=== PATIENT | female | born 1950 | race Two or more races ===

== ENCOUNTER → 2024-04-25 | Outpatient (CLI) | payer OTHER, SELFPAY ==
[2024-04-25 15:56] LABS: Collection Type, Urine Clean Catch
[2024-04-25 18:12] LABS: Bacteria,Urine 1+; Bilirubin,Urine Negative (Negative); Blood,Urine Negative (Negative); Clarity,Urine Turbid (Clear/Hazy); Color,Urine Lt-Yellow (Lt Yel-Yel); Glucose, Urine Negative (Negative); Ketones,Urine Negative (Negative); Leukocyte Esterase,Urine Positive (Negative); Nitrite,Urine Positive (Negative); Protein,Urine Negative (Neg - Trace); RBC,Urine 4 /hpf (0-3); Specific Gravity,Urine 1.016 (1.001-1.035); Squamous Epithelial Cell,Urine 4 /hpf (0-5); Urobilinogen,Urine Negative mg/dL (0.0-1.0); WBC,Urine 185 /hpf (0-5)
== END | disposition home or self-care (01) ==
LOC: SLDO 15:41
PROVIDERS: PCP Nurse Practitioner Family; Referring Provider Nurse Practitioner Family; Visit Provider Nurse Practitioner Family
DX: N39.0 Urinary tract infection, site not specified (principal)
CPT/HCPCS: 81001; 87077; 87086; 87186

== ENCOUNTER → 2024-10-22 | Outpatient (CLI) | payer OTHER, SELFPAY ==
[2024-10-22 09:16] LABS: Collection Type, Urine Clean Catch
[2024-10-22 09:29] LABS: Basophils # (Auto) 0.1 Thou/mm3 (0.0-0.2); Basophils % (Auto) 1 % (0-2.5); Eosinophils # (Auto) 0.2 Thou/mm3 (0.0-0.5); Eosinophils % (Auto) 3 % (0-10); Hematocrit 35.8 % (36.0-46.0); Hemoglobin 11.7 g/dL (12.0-16.0); Immature Granulocytes Auto 0.02 Thou/mm3 (0.00-0.00); Lymphocytes # (Auto) 1.5 Thou/mm3 (1.0-4.8); Lymphocytes % (Auto) 27 % (10-50); Mean Corpuscular HGB Conc 32.7 g/dl (31.0-37.0); Mean Corpuscular Hemoglobin 30.1 pg (25.0-35.0); Mean Corpuscular Volume 92 fL (80-100); Monocytes # (Auto) 0.4 Thou/mm3 (0.0-0.8); Monocytes % (Auto) 7 % (0-12); Neutrophils # (Auto) 3.5 Thou/mm3 (1.8-7.7); Neutrophils % (Auto) 62 % (37-80); Nucleated Red Blood Cell # 0.00 Thou/mm3 (0.00-0.00); Nucleated Red Blood Cell % 0 /100 WBC (0); Platelet Count 304 Thou/mm3 (140-440); RDW Standard Deviation 44.1 fL (36.4-46.3); Red Blood Count 3.89 Miln/mm3 (4.00-5.20); White Blood Count 5.6 Thou/mm3 (3.6-11.0)
[2024-10-22 09:39] LABS: Bilirubin,Urine Negative (Negative); Blood,Urine Negative (Negative); Clarity,Urine Clear (Clear/Hazy); Color,Urine Lt-Yellow (Lt Yel-Yel); Culture Indicated,Urine Not Indicated; Glucose, Urine Negative (Negative); Ketones,Urine Negative (Negative); Leukocyte Esterase,Urine Negative (Negative); Nitrite,Urine Negative (Negative); PH,Urine 5.5 (5.0-7.0); Protein,Urine Negative (Neg - Trace); RBC,Urine 2 /hpf (0-3); Specific Gravity,Urine 1.020 (1.001-1.035); Squamous Epithelial Cell,Urine 3 /hpf (0-5); Urobilinogen,Urine Negative mg/dL (0.0-1.0); WBC,Urine 1 /hpf (0-5)
[2024-10-22 09:41] LABS: Glucose Estimated Average 126 mg/dL (80-131); Hemoglobin A1C 6.0 % Hgb (4.8-6.0)
[2024-10-22 09:54] LABS: Vitamin D 25 Hydroxy Total 40.1 ng/mL (7.3-40.2)
[2024-10-22 10:07] LABS: Alanine Aminotransferase 12 U/L (10-49); Albumin, Serum 4.2 gm/dL (3.4-4.8); Albumin/Globulin Ratio 1.4 (1.2-2.2); Alkaline Phosphatase 68 U/L (46-116); Anion Gap 11 (7-16); Aspartate Amino Transferase 18 U/L (0-34); BUN/Creatinine Ratio 16 Ratio (12-20); Bilirubin,Total 0.3 mg/dL (0.3-1.2); Blood Urea Nitrogen 14 mg/dL (9-23); Calcium 9.3 mg/dL (8.3-10.6); Calcium (Corrected) 9.3 mg/dL (8.5-10.1); Carbon Dioxide 24.8 mMol/L (20.0-31.0); Cardiac Risk Estimate 2.8 RATIO (3.7-5.6); Chloride 109 mMol/L (98-107); Cholesterol 169 mg/dL (132-200); Creatinine (Component) 0.9 mg/dL (0.6-1.3); Globulin 2.9 gm/dL (2.3-3.5); Glucose 99 mg/dL (74-106); HDL Cholesterol 61 mg/dL (40-60); LDL Cholesterol,Calculated 78 mg/dL (0-130); Osmolality,Calculated 289 (275-295); Potassium 4.7 mMol/L (3.4-5.1); Sodium 145 mMol/L (136-145); Thyroid Stimulating Hormone 1.22 uIU/mL (0.55-4.78); Total Protein 7.1 gm/dL (5.7-8.2); Triglycerides 152 mg/dL (30-150); eGFR > 60 See Note
== END | disposition home or self-care (01) ==
LOC: COPL 08:28
PROVIDERS: PCP Family Medicine; Referring Provider Registered Nurse; Visit Provider Registered Nurse
DX: Z00.00 Encounter for general adult medical examination without abnormal findings (principal); I10 Essential (primary) hypertension; E78.2 Mixed hyperlipidemia
CPT/HCPCS: 36415; 80053; 80061; 81001; 82306; 83036; 84443; 85025

== ENCOUNTER → 2024-11-12 | Outpatient (CLI) | payer OTHER, SELFPAY | END | disposition home or self-care (01) | LOC: SLDO 14:39 | PROVIDERS: Referring Provider Student in an Organized Health Care Education/Training Program; Visit Provider Student in an Organized Health Care Education/Training Program | DX: N39.0 Urinary tract infection, site not specified (principal) | CPT/HCPCS: 87086 ==

== ENCOUNTER → 2024-12-25 | Outpatient (CLI) | payer OTHER, SELFPAY ==
--- NOTE | 2024-12-25 14:00 | XR_ITS ---
Examination: Bone densitometry Date and time of exam:December 25, 2024, 1417 hours INDICATIONS: Hysterectomy age 56 vitamin D 5 years Technique: Lumbar spine and hip total bone mineralization values of an calculated. Peak reference and age match control results have been displayed. Findings: Lumbar spine total bone mineralization is1.105 gm/cm2. This is 0.5 standard deviations above peak reference. This is 2.9 standard deviations above age-matched controls. Hip total bone mineralization is 0.953 gm/cm2 This is 0.1 standard deviations below peak reference. This is 1.7 standard deviations above age-matched controls Impression: There is normal mineralization based on lumbar spine measurements. There is osteopenia based on hip measurements Lumbar mineralization is decreased 1.2% compared with November 16, 2021. Hip mineralization is decreased 0.2% compared with November 16, 2021.
--- NOTE | 2024-12-25 14:20 | XR_ITS ---
Examination: Screening digital mammography, bilateral Computer aided detection 3-D breast Tomosynthesis, bilateral Date and time of exam: December 25, 2024, 1355 hours, compared to mammograms dating to November 16, 2021 Indication: Screening Technique: Nonmagnified MLO, CC views of the breasts to been obtained, reconstructed from 3-D Tomosynthesis images. R2 computer aided detection program utilized for evaluation of suspicious masses and/or abnormal calcifications. 3-D Tomosynthesis images obtained. Findings: Scattered areas of fibroglandular density. 14 mm focal asymmetry upper outer right breast 12 mm focal asymmetry upper outer left breast anterior depth Impression: BI-RADS Category 0: Incomplete: Need additional imaging evaluation. Recommend follow-up spot tomographic views of 14 mm focal asymmetry upper outer right breast and 12 mm focal asymmetry upper outer left breast as well as bilateral breast sonography to complete the workup
== END | disposition home or self-care (01) ==
LOC: CDIM 13:48
PROVIDERS: Referring Provider Registered Nurse; Visit Provider Registered Nurse
DX: Z12.31 Encounter for screening mammogram for malignant neoplasm of breast (principal); N64.89 Other specified disorders of breast; R92.8 Other abnormal and inconclusive findings on diagnostic imaging of breast; M85.89 Other specified disorders of bone density and structure, multiple sites
CPT/HCPCS: 77063; 77067; 77080

== ENCOUNTER → 2025-02-24 | Outpatient (CLI) | payer OTHER, SELFPAY ==
--- NOTE | 2025-02-24 09:30 | XR_ITS ---
Examination: Breast ultrasound complete, bilateral Date and time of exam: February 24, 2025, 0917 hours INDICATIONS: Mammogram 12/21/1999 2514 mm focal asymmetry upper outer right breast 12 mm focal asymmetry upper outer left breast Technique: Real-time grayscale ultrasonographic imaging bilateral breasts, including all 4 quadrants as well as nipple retroareolar and axillary regions. Findings: Sonographic images right breast 7:00 cyst 2 x 3 mm 10:00 nodule circumscribed 6 x 6 mm 11:00 cyst 3 x 3 mm Sonographic images left breast No cystic or solid mass IMPRESSION: BI-RADS Category 3: Probably benign findings Recommend 1 additional 6-month right breast sonogram follow-up to document stability of 10:00 nodule described above right breast
--- NOTE | 2025-02-24 10:30 | XR_ITS ---
Examination: Diagnostic digital mammography, bilateral Computer aided detection 3-D breast Tomosynthesis, bilateral Date and time of exam: February 24, 2025, 0938 hours INDICATIONS: Mammogram 12/25/2024 14 mm focal asymmetry upper outer right breast 12 mm focal asymmetry upper outer left breast Technique: Nonmagnified MLO, CC views of the breasts to been obtained, reconstructed from 3-D Tomosynthesis images. R2 computer aided detection program utilized for evaluation of suspicious masses and/or abnormal calcifications. 3-D Tomosynthesis images obtained. Findings: Scattered areas of fibroglandular density 10:00 nodular asymmetry right breast 8 mm Focal asymmetry remains on the spot compression cc view outer left breast Impression: BI-RADS Category 3: Probably benign findings 1 additional continued 6-month bilateral mammography follow-up is needed
== END | disposition home or self-care (01) ==
LOC: CDIM 09:03
PROVIDERS: PCP Family Medicine; Referring Provider Registered Nurse; Visit Provider Registered Nurse
DX: R92.333 Mammographic heterogeneous density, bilateral breasts (principal); N63.11 Unspecified lump in the right breast, upper outer quadrant
CPT/HCPCS: 76641; 77062; 77066; G0279

== ENCOUNTER → 2025-03-10 | Outpatient (CLI) | payer OTHER, SELFPAY ==
[2025-03-10 14:14] LABS: Collection Type, Urine Clean Catch
[2025-03-10 15:16] LABS: Bacteria,Urine Rare; Bilirubin,Urine Negative (Negative); Blood,Urine Negative (Negative); Clarity,Urine Clear (Clear/Hazy); Color,Urine Lt-Yellow (Lt Yel-Yel); Glucose, Urine Negative (Negative); Hyaline Casts,Urine < 1 /hpf (0-1); Ketones,Urine Negative (Negative); Leukocyte Esterase,Urine Negative (Negative); Nitrite,Urine Negative (Negative); PH,Urine 6.0 (5.0-7.0); Protein,Urine Negative (Neg - Trace); RBC,Urine < 1 /hpf (0-3); Specific Gravity,Urine 1.012 (1.001-1.035); Squamous Epithelial Cell,Urine 2 /hpf (0-5); Urobilinogen,Urine Negative mg/dL (0.0-1.0); WBC,Urine < 1 /hpf (0-5)
== END | disposition home or self-care (01) ==
LOC: SLDO 13:58
PROVIDERS: Referring Provider Registered Nurse; Visit Provider Registered Nurse
DX: R30.0 Dysuria (principal)
CPT/HCPCS: 81001; 87086